=== PATIENT | female | born 1940 | race Caucasian/White ===

== ENCOUNTER 2024-12-10 20:37 | Emergency (ER) | payer MEDICAID, OTHER ==
[~2024-12-10] VITALS: Ht 157.5 cm; Wt 58.0 kg
[~2024-12-10 20:37] MED LIST: ASPI-1497 PO; DOCU-422 PO; Hydralazine Hcl PO; METF-416 PO; SITA100T11 PO
[2024-12-10 21:11] VITALS: TEMP 37.1; O2SAT 98
[2024-12-10] MEDS: ACYCLOVIR 400 MG TABLET PO ONE (22:12)
[2024-12-10 22:13] LABS: HEMATOCRIT. 40.7 % (36.0-48.0); HEMOGLOBIN. 13.5 g/dL (12.0-16.0); MEAN CORPUSCULAR HEMOGLOBIN 30.1 pg (28.0-32.0); MEAN CORPUSCULAR HGB CONC 33.2 g/dL (31.0-37.0); MEAN CORPUSCULAR VOLUME 90.8 fL (81.0-99.0); MEAN PLATELET VOLUME 10.4 fl (7.4-10.4); PLATELET 152 x1000/uL (130-400); RED BLOOD CELL COUNT 4.49 mill/uL (4.2-5.4); RED CELL DISTRIBUTION WIDTH 13.4 % (11.6-14.6)
[2024-12-10] MEDS: METHYLPREDNISOLONE SOD SUCC 125MG/2ML (ACT-O-VIAL) IV ONE (22:14)
[2024-12-10] MEDS: SODIUM CHLORIDE 0.9% 1,000 ML IV ONE (22:15)
[2024-12-10 22:22] LABS: DIFFERENTIAL COMMENT 1
[2024-12-10 22:26] LABS: POTASSIUM 4.1 mEq/L (3.5-5.1)
[2024-12-10 22:28] LABS: CALCIUM 9.4 mg/dL (8.7-10.4)
[2024-12-10 22:32] LABS: CREATININE 1.8 mg/dL (0.6-1.0)
[2024-12-10] MEDS: HYDRALAZINE 20MG/ML VIAL IV ONE (22:38)
[2024-12-10 22:51] LABS: PLATELET ESTIMATE NORMAL
[2024-12-11 01:08] LABS: CLARITY URINE CLEAR (CLEAR); COLOR URINE YELLOW (YELLOW); GLUCOSE URINE NEGATIVE (NEGATIVE); KETONES URINE NEGATIVE (NEGATIVE); LEUKOCYTE ESTERASE URINE NEGATIVE (NEGATIVE); NITRITE URINE NEGATIVE (NEGATIVE); OCCULT BLOOD URINE NEGATIVE (NEGATIVE); PH URINE 5.5 (4.5-8.0); PROTEIN URINE 3+ (NEGATIVE); SPECIFIC GRAVITY URINE 1.014 (1.005-1.030); UROBILINOGEN URINE 0.2 E.U./dL (0.2-1.0)
[2024-12-11] MEDS: ACETAMINOPHEN 325MG TABLET PO ONE (02:34)
[2024-12-11] MEDS: IBUPROFEN 600MG TABLET PO ONE (02:34)
[2024-12-11] MEDS ORDERED: TOPUD MT (03:40)
[2024-12-11] MEDS ORDERED: ACYC200C31 MT (03:40)
[2024-12-11] MEDS ORDERED: P20 MT (03:40)
[2024-12-11 03:55] VITALS: BP 128/53; PULSE 75; RESP 22; O2SAT 93
[2024-12-11 05:07] LABS: RBC URINE 0-2 /hpf (0-2); SQUAMOUS EPITHELIAL CELL URINE FEW /lpf (RARE/1+); WBC URINE 0-2 /hpf (0-2)
[2024-12-11 05:08] LABS: BACTERIA URINE NONE SEEN
== END 2024-12-11 04:15 | disposition home or self-care (01) ==
LOC: ER 20:37
DX: B02.9 Zoster without complications (principal); I10 Essential (primary) hypertension; Z79.82 Long term (current) use of aspirin; Z79.84 Long term (current) use of oral hypoglycemic drugs; Z88.0 Allergy status to penicillin; Z90.710 Acquired absence of both cervix and uterus
CPT/HCPCS: 80048; 85025; 36415; 96361; 96374; 96375; 99285; 81003; J0360; J2919; J7030; Z7610